=== PATIENT | male | born 1930 | race Caucasian/White ===

== ENCOUNTER 2018-01-08 00:36 | Inpatient (IN) | payer OTHER ==
[2018-01-08] MEDS ORDERED: ACETAMINOPHEN 325 MG TAB PO (03:30)
[2018-01-08] MEDS ORDERED: ONDANSETRON 4 MG INJ IV (03:30)
[2018-01-08] MEDS ORDERED: morphine 2 MG INJ IV (03:30)
[2018-01-08] MEDS ORDERED: NACL 0.9% 3 ML SYG IV (03:30)
[2018-01-08 03:47] LABS: ADD MAN DIFF? NO
[2018-01-08 03:50] LABS: BASOPHILS % 0.3 % (0.0-2.0); EOSINOPHILS # 0.3 10^3/ul (0.0-0.5); EOSINOPHILS % 3.8 % (0.0-7.0); HEMOGLOBIN 12.4 g/dl (14.0-18.0); LYMPHOCYTES # 1.3 10^3/ul (0.8-2.9); LYMPHOCYTES % 17.4 % (15.0-51.0); MEAN CORPUSCULAR HEMOGLOBIN 30.3 pg (29.0-33.0); MEAN CORPUSCULAR HGB CONC 33.5 g/dl (32.0-37.0); MEAN CORPUSCULAR VOLUME 90.5 fl (82.0-101.0); MEAN PLATELET VOLUME 10.5 fl (7.4-10.4); MONOCYTE # 0.6 10^3/ul (0.3-0.9); MONOCYTES % 8.7 % (0.0-11.0); NEUTROPHIL # 5.1 10^3/ul (1.6-7.5); NEUTROPHILS % 69.3 % (39.0-77.0); PLATELET COUNT 211 10^3/UL (140-415); RED BLOOD COUNT 4.09 10^6/ul (4.70-6.10); RED CELL DISTRIBUTION WIDTH 14.6 % (11.5-14.5)
[2018-01-08 03:50] LABS: WHITE BLOOD COUNT 7.4 10^3/ul (4.8-10.8)
[2018-01-08 04:08] LABS: HEMOGLOBIN A1C 5.8 % (0-5.9)
[2018-01-08 04:11] LABS: ALANINE AMINOTRANSFERASE 13 IU/L (13-69); ALBUMIN 4.3 g/dl (3.3-4.9); ALBUMIN/GLOBULIN RATIO 1.34; ALKALINE PHOSPHATASE 82 IU/L (42-121); ANION GAP 22 (8-16); ASPARTATE AMINO TRANSFERASE 11 IU/L (15-46); BILIRUBIN,INDIRECT 0.2 mg/dl (0-1.1); BILIRUBIN,TOTAL 0.2 mg/dl (0.2-1.3); BLOOD UREA NITROGEN 75 mg/dl (7-20); CARBON DIOXIDE 16 mmol/L (21-31); CHLORIDE 109 mmol/L (97-110); CHOL/HDL RATIO 7.4 RATIO; CHOLESTEROL 200 mg/dl (100-200); CREATININE 3.61 mg/dl (0.61-1.24); GLUCOSE 109 mg/dl (70-220); HDL CHOLESTEROL 27 mg/dl (31-75); LDL CHOLESTEROL,CALCULATED 89 mg/dl; MAGNESIUM 1.7 mg/dl (1.7-2.5); POTASSIUM 4.8 mmol/L (3.5-5.1); SODIUM 142 mmol/L (135-144); TOTAL PROTEIN 7.5 g/dl (6.1-8.1); TRIGLYCERIDES 422 mg/dl (0-149)
[2018-01-08 04:18] LABS: B-TYPE NATRIURETIC PEPTIDE 4930 PG/ML (0-450)
[2018-01-08 05:17] LABS: THYROID STIMULATING HORMONE 0.466 MIU/L (0.465-4.680)
[2018-01-08 05:57] LABS: ADD UMIC NO; UR ASCORBIC ACID NEGATIVE (NEGATIVE); UR BILIRUBIN (Dip) NEGATIVE (NEGATIVE); UR BLOOD (Dip) NEGATIVE (NEGATIVE); UR CLARITY CLEAR (CLEAR); UR COLOR YELLOW (YELLOW); UR GLUCOSE (Dip) NEGATIVE (NEGATIVE); UR KETONES (Dip) NEGATIVE (NEGATIVE); UR LEUKOCYTE ESTERASE (Dip) NEGATIVE Leu/ul (NEGATIVE); UR NITRITE (Dip) NEGATIVE (NEGATIVE); UR RBC 0 /HPF (0-5); UR SPECIFIC GRAVITY (Dip) 1.015 (1.003-1.030); UR TOTAL PROTEIN (Dip) NEGATIVE (NEGATIVE); UR UROBILINOGEN (Dip) NEGATIVE (NEGATIVE); UR WBC 2 /HPF (0-5)
[2018-01-08 09:34] LABS: CREATINE KINASE 98 IU/L (23-200); TROPONIN-I 0.048 ng/ml (0.000-0.120)
[2018-01-08 09:35] LABS: CK-MB 1.93 ng/ml (0.0-2.4)
[2018-01-08] MEDS: NITROGLYCERIN (SL) 0.4 MG TAB SL ×2 (12:32→12:38)
[2018-01-08] MEDS: ASPIRIN (EC) 81 MG TAB PO (12:33)
[2018-01-08] MEDS: ISOSORBIDE MONONITRATE(SR)60 MG TAB PO (12:33)
[2018-01-08] MEDS: NA BICARBONATE 650 MG TAB PO ×2 (12:34→21:15)
[2018-01-08] MEDS: CLOPIDOGREL 75 MG TAB PO (14:53)
[2018-01-08] MEDS: ATORVASTATIN 40 MG TAB PO (21:15)
[2018-01-09 06:28] LABS: ADD MAN DIFF? NO
[2018-01-09 06:39] LABS: WHITE BLOOD COUNT 6.6 10^3/ul (4.8-10.8)
[2018-01-09 06:39] LABS: BASOPHILS % 0.3 % (0.0-2.0); EOSINOPHILS # 0.2 10^3/ul (0.0-0.5); EOSINOPHILS % 3.6 % (0.0-7.0); HEMATOCRIT 38.6 % (42.0-52.0); HEMOGLOBIN 12.6 g/dl (14.0-18.0); LYMPHOCYTES # 0.9 10^3/ul (0.8-2.9); LYMPHOCYTES % 12.9 % (15.0-51.0); MEAN CORPUSCULAR HEMOGLOBIN 30.1 pg (29.0-33.0); MEAN CORPUSCULAR HGB CONC 32.6 g/dl (32.0-37.0); MEAN CORPUSCULAR VOLUME 92.1 fl (82.0-101.0); MEAN PLATELET VOLUME 10.9 fl (7.4-10.4); MONOCYTE # 0.5 10^3/ul (0.3-0.9); MONOCYTES % 8.2 % (0.0-11.0); NEUTROPHIL # 4.9 10^3/ul (1.6-7.5); NEUTROPHILS % 74.5 % (39.0-77.0); PLATELET COUNT 231 10^3/UL (140-415); RED BLOOD COUNT 4.19 10^6/ul (4.70-6.10); RED CELL DISTRIBUTION WIDTH 14.3 % (11.5-14.5)
[2018-01-09 06:51] LABS: ANION GAP 21 (8-16); BLOOD UREA NITROGEN 75 mg/dl (7-20); CALCIUM 8.9 mg/dl (8.4-10.2); CARBON DIOXIDE 16 mmol/L (21-31); CHLORIDE 110 mmol/L (97-110); CREATININE 2.94 mg/dl (0.61-1.24); GLUCOSE 130 mg/dl (70-220); POTASSIUM 4.6 mmol/L (3.5-5.1); SODIUM 142 mmol/L (135-144)
[2018-01-09 07:02] LABS: MAGNESIUM 1.9 mg/dl (1.7-2.5)
[2018-01-09] MEDS: NA BICARBONATE 650 MG TAB PO ×2 (08:44→20:32)
[2018-01-09] MEDS: ASPIRIN (EC) 81 MG TAB PO (08:44)
[2018-01-09] MEDS: ISOSORBIDE MONONITRATE(SR)60 MG TAB PO (08:45)
[2018-01-09] MEDS: CLOPIDOGREL 75 MG TAB PO (08:45)
[2018-01-09] MEDS ORDERED: morphine LIQ (10 MG/5 ML) CUP PO (14:30)
[2018-01-09] MEDS: FUROSEMIDE 20 MG TAB PO (15:20)
[2018-01-09] MEDS: ATORVASTATIN 40 MG TAB PO (20:32)
[2018-01-09] MEDS: RANOLAZINE (SR) 500 MG TAB PO (20:32)
[2018-01-10] MEDS: FUROSEMIDE 20 MG TAB PO (06:02)
[2018-01-10] MEDS: ASPIRIN (EC) 81 MG TAB PO (08:22)
[2018-01-10] MEDS: ISOSORBIDE MONONITRATE(SR)30 MG TAB PO (08:22)
[2018-01-10] MEDS: CLOPIDOGREL 75 MG TAB PO (08:22)
[2018-01-10] MEDS: RANOLAZINE (SR) 500 MG TAB PO (08:23)
[2018-01-10] MEDS: NA BICARBONATE 650 MG TAB PO (08:23)
== END 2018-01-10 14:25 | disposition home or self-care (01) | DRG 682 ==
LOC: TEL 00:36
DX: N17.9 Acute kidney failure, unspecified (principal); I50.23 Acute on chronic systolic (congestive) heart failure; I13.0 Hypertensive heart and chronic kidney disease with heart failure and stage 1 through stage 4 chronic kidney disease, or unspecified chronic kidney disease; I42.9 Cardiomyopathy, unspecified; Z95.1 Presence of aortocoronary bypass graft; R07.9 Chest pain, unspecified; N18.4 Chronic kidney disease, stage 4 (severe); I25.10 Atherosclerotic heart disease of native coronary artery without angina pectoris; E78.5 Hyperlipidemia, unspecified; Z79.82 Long term (current) use of aspirin; Z79.02 Long term (current) use of antithrombotics/antiplatelets; Z95.5 Presence of coronary angioplasty implant and graft; Z87.891 Personal history of nicotine dependence
CPT/HCPCS: 71045; 76775; 80048; 80053; 80061; 81003; 82550; 82553; 83036; 83735; 83880; 84443; 84484; 85025; 87081; 93005; 93306

== ENCOUNTER 2018-01-16 10:49 | Inpatient (IN) | payer OTHER ==
[2018-01-16 11:42] LABS: ADD MAN DIFF? NO
[2018-01-16 11:52] LABS: WHITE BLOOD COUNT 7.4 10^3/ul (4.8-10.8)
[2018-01-16 11:52] LABS: ABNORMAL IP MESSAGE 1; BASOPHILS % 0.1 % (0.0-2.0); EOSINOPHILS # 0.2 10^3/ul (0.0-0.5); EOSINOPHILS % 3.2 % (0.0-7.0); HEMATOCRIT 36.5 % (42.0-52.0); HEMOGLOBIN 11.8 g/dl (14.0-18.0); LYMPHOCYTES # 0.6 10^3/ul (0.8-2.9); LYMPHOCYTES % 7.7 % (15.0-51.0); MEAN CORPUSCULAR HEMOGLOBIN 30.1 pg (29.0-33.0); MEAN CORPUSCULAR HGB CONC 32.3 g/dl (32.0-37.0); MEAN CORPUSCULAR VOLUME 93.1 fl (82.0-101.0); MEAN PLATELET VOLUME 10.4 fl (7.4-10.4); MONOCYTE # 0.4 10^3/ul (0.3-0.9); MONOCYTES % 5.3 % (0.0-11.0); NEUTROPHIL # 6.1 10^3/ul (1.6-7.5); NEUTROPHILS % 83.2 % (39.0-77.0); PLATELET COUNT 202 10^3/UL (140-415); POSITIVE DIFF @See below; RED BLOOD COUNT 3.92 10^6/ul (4.70-6.10); RED CELL DISTRIBUTION WIDTH 14.6 % (11.5-14.5)
[2018-01-16] MEDS: ASPIRIN 81 MG TAB PO (11:56)
[2018-01-16 12:16] LABS: ANION GAP 17 (8-16); BLOOD UREA NITROGEN 47 mg/dl (7-20); CALCIUM 9.3 mg/dl (8.4-10.2); CARBON DIOXIDE 19 mmol/L (21-31); CHLORIDE 114 mmol/L (97-110); CREATININE 2.58 mg/dl (0.61-1.24); GLUCOSE 155 mg/dl (70-220); POTASSIUM 4.7 mmol/L (3.5-5.1); SODIUM 145 mmol/L (135-144)
[2018-01-16 12:26] LABS: B-TYPE NATRIURETIC PEPTIDE 6010 PG/ML (0-450); TROPONIN-I 0.033 ng/ml (0.000-0.120)
[2018-01-16] MEDS: morphine 4 MG/ML VIAL IV (13:16)
[2018-01-16] MEDS ORDERED: ACETAMINOPHEN 325 MG TAB PO ×2 (13:30→14:30)
[2018-01-16] MEDS ORDERED: ONDANSETRON 4 MG INJ IV ×2 (13:30→14:30)
[2018-01-16] MEDS ORDERED: NACL 0.9% 3 ML SYG IV (14:30)
[2018-01-16] MEDS ORDERED: NITROGLYCERIN (SL) 0.4 MG TAB SL (14:30)
[2018-01-16] MEDS: CITRIC ACID/SODIUM CITRATE 15 ML CUP PO ×2 (16:32→20:31)
[2018-01-16 18:15] LABS: CREATINE KINASE 98 IU/L (23-200)
[2018-01-16 18:28] LABS: CK INDEX 2.1; TROPONIN-I 0.034 ng/ml (0.000-0.120)
[2018-01-16 18:30] LABS: CK-MB 2.05 ng/ml (0.0-2.4)
[2018-01-16] MEDS: ATORVASTATIN 40 MG TAB PO (20:31)
[2018-01-16] MEDS: ISOSORBIDE MONONITRATE(SR)60 MG TAB PO (20:31)
[2018-01-16] MEDS ORDERED: NA BICARBONATE 650 MG TAB PO (21:00)
[2018-01-16] MEDS ORDERED: ISOSORBIDE MONONITRATE(SR)30 MG TAB PO (21:00)
[2018-01-16] MEDS: RANOLAZINE (SR) 500 MG TAB PO (22:14)
[2018-01-16] MEDS: HEPARIN 5,000 UNIT/0.5 ML VIAL SC (22:23)
[2018-01-17 00:10] LABS: CREATINE KINASE 79 IU/L (23-200)
[2018-01-17 00:24] LABS: CK INDEX 2.2; TROPONIN-I 0.037 ng/ml (0.000-0.120)
[2018-01-17 00:25] LABS: CK-MB 1.71 ng/ml (0.0-2.4)
[2018-01-17] MEDS: PANTOPRAZOLE (EC) 40 MG TAB PO (05:24)
[2018-01-17] MEDS: HEPARIN 5,000 UNIT/0.5 ML VIAL SC ×3 (05:25→21:03)
[2018-01-17] MEDS: morphine LIQ (10 MG/5 ML) CUP PO (05:37)
[2018-01-17] MEDS: CLOPIDOGREL 75 MG TAB PO (08:29)
[2018-01-17] MEDS: ASPIRIN (EC) 81 MG TAB PO (08:29)
[2018-01-17] MEDS: CITRIC ACID/SODIUM CITRATE 15 ML CUP PO ×3 (08:29→20:56)
[2018-01-17] MEDS: FUROSEMIDE 40 MG TAB PO (08:29)
[2018-01-17] MEDS: RANOLAZINE (SR) 500 MG TAB PO ×2 (08:30→20:57)
[2018-01-17] MEDS: ISOSORBIDE MONONITRATE(SR)60 MG TAB PO ×2 (08:30→20:57)
[2018-01-17 08:43] LABS: ADD MAN DIFF? NO
[2018-01-17 08:49] LABS: BASOPHILS % 0.2 % (0.0-2.0); EOSINOPHILS # 0.2 10^3/ul (0.0-0.5); EOSINOPHILS % 4.2 % (0.0-7.0); HEMATOCRIT 33.5 % (42.0-52.0); HEMOGLOBIN 10.8 g/dl (14.0-18.0); LYMPHOCYTES # 0.8 10^3/ul (0.8-2.9); LYMPHOCYTES % 14.2 % (15.0-51.0); MEAN CORPUSCULAR HEMOGLOBIN 30.2 pg (29.0-33.0); MEAN CORPUSCULAR HGB CONC 32.2 g/dl (32.0-37.0); MEAN CORPUSCULAR VOLUME 93.6 fl (82.0-101.0); MEAN PLATELET VOLUME 10.8 fl (7.4-10.4); MONOCYTE # 0.4 10^3/ul (0.3-0.9); MONOCYTES % 6.3 % (0.0-11.0); NEUTROPHIL # 4.3 10^3/ul (1.6-7.5); NEUTROPHILS % 74.7 % (39.0-77.0); PLATELET COUNT 185 10^3/UL (140-415); RED BLOOD COUNT 3.58 10^6/ul (4.70-6.10); RED CELL DISTRIBUTION WIDTH 14.6 % (11.5-14.5)
[2018-01-17 08:49] LABS: WHITE BLOOD COUNT 5.7 10^3/ul (4.8-10.8)
[2018-01-17 09:08] LABS: ALANINE AMINOTRANSFERASE 19 IU/L (13-69); ALBUMIN 3.5 g/dl (3.3-4.9); ALBUMIN/GLOBULIN RATIO 1.29; ALKALINE PHOSPHATASE 68 IU/L (42-121); ANION GAP 16 (8-16); ASPARTATE AMINO TRANSFERASE 12 IU/L (15-46); BILIRUBIN,INDIRECT 0.3 mg/dl (0-1.1); BILIRUBIN,TOTAL 0.3 mg/dl (0.2-1.3); BLOOD UREA NITROGEN 44 mg/dl (7-20); CALCIUM 8.8 mg/dl (8.4-10.2); CARBON DIOXIDE 19 mmol/L (21-31); CHLORIDE 116 mmol/L (97-110); CREATININE 2.45 mg/dl (0.61-1.24); GLUCOSE 102 mg/dl (70-220); MAGNESIUM 1.9 mg/dl (1.7-2.5); POTASSIUM 4.6 mmol/L (3.5-5.1); SODIUM 146 mmol/L (135-144); TOTAL PROTEIN 6.2 g/dl (6.1-8.1)
[2018-01-17] MEDS: GABAPENTIN 100 MG CAP PO (13:12)
[2018-01-17] MEDS: ATORVASTATIN 40 MG TAB PO (20:57)
[2018-01-18] MEDS: PANTOPRAZOLE (EC) 40 MG TAB PO (06:12)
[2018-01-18] MEDS: HEPARIN 5,000 UNIT/0.5 ML VIAL SC ×3 (06:13→20:22)
[2018-01-18 06:58] LABS: ADD MAN DIFF? NO
[2018-01-18 07:32] LABS: BASOPHILS % 0.3 % (0.0-2.0); EOSINOPHILS # 0.4 10^3/ul (0.0-0.5); HEMATOCRIT 35.4 % (42.0-52.0); HEMOGLOBIN 11.4 g/dl (14.0-18.0); LYMPHOCYTES # 0.9 10^3/ul (0.8-2.9); LYMPHOCYTES % 12.7 % (15.0-51.0); MEAN CORPUSCULAR HEMOGLOBIN 30.2 pg (29.0-33.0); MEAN CORPUSCULAR HGB CONC 32.2 g/dl (32.0-37.0); MEAN CORPUSCULAR VOLUME 93.9 fl (82.0-101.0); MEAN PLATELET VOLUME 10.6 fl (7.4-10.4); MONOCYTE # 0.5 10^3/ul (0.3-0.9); MONOCYTES % 6.7 % (0.0-11.0); NEUTROPHIL # 5.3 10^3/ul (1.6-7.5); PLATELET COUNT 193 10^3/UL (140-415); RED BLOOD COUNT 3.77 10^6/ul (4.70-6.10); RED CELL DISTRIBUTION WIDTH 14.6 % (11.5-14.5)
[2018-01-18] MEDS: HYDROCODONE/APAP (5/325) TAB PO (07:44)
[2018-01-18] MEDS: CLOPIDOGREL 75 MG TAB PO (08:22)
[2018-01-18] MEDS: GABAPENTIN 100 MG CAP PO (08:22)
[2018-01-18] MEDS: RANOLAZINE (SR) 500 MG TAB PO ×2 (08:22→20:21)
[2018-01-18] MEDS: ASPIRIN (EC) 81 MG TAB PO (08:22)
[2018-01-18] MEDS: ISOSORBIDE MONONITRATE(SR)60 MG TAB PO ×2 (08:23→20:21)
[2018-01-18] MEDS: FUROSEMIDE 40 MG TAB PO (08:23)
[2018-01-18] MEDS: CITRIC ACID/SODIUM CITRATE 15 ML CUP PO ×3 (08:23→20:20)
[2018-01-18 08:24] LABS: PHOSPHORUS 4.4 mg/dl (2.5-4.9)
[2018-01-18 08:24] LABS: MAGNESIUM 1.8 mg/dl (1.7-2.5)
[2018-01-18 09:22] LABS: ANION GAP 17 (8-16); BLOOD UREA NITROGEN 51 mg/dl (7-20); CARBON DIOXIDE 25 mmol/L (21-31); CHLORIDE 109 mmol/L (97-110); CREATININE 2.75 mg/dl (0.61-1.24); GLUCOSE 99 mg/dl (70-220); POTASSIUM 4.9 mmol/L (3.5-5.1); SODIUM 146 mmol/L (135-144)
[2018-01-18] MEDS: ATORVASTATIN 40 MG TAB PO (20:21)
[2018-01-19] MEDS: HEPARIN 5,000 UNIT/0.5 ML VIAL SC ×3 (06:00→21:12)
[2018-01-19] MEDS: PANTOPRAZOLE (EC) 40 MG TAB PO (06:18)
[2018-01-19 07:44] LABS: ADD MAN DIFF? NO
[2018-01-19 07:54] LABS: BASOPHILS % 0.3 % (0.0-2.0); EOSINOPHILS # 0.3 10^3/ul (0.0-0.5); EOSINOPHILS % 3.4 % (0.0-7.0); HEMATOCRIT 34.3 % (42.0-52.0); HEMOGLOBIN 11.1 g/dl (14.0-18.0); LYMPHOCYTES # 0.8 10^3/ul (0.8-2.9); LYMPHOCYTES % 11.3 % (15.0-51.0); MEAN CORPUSCULAR HEMOGLOBIN 29.9 pg (29.0-33.0); MEAN CORPUSCULAR HGB CONC 32.4 g/dl (32.0-37.0); MEAN CORPUSCULAR VOLUME 92.5 fl (82.0-101.0); MEAN PLATELET VOLUME 10.7 fl (7.4-10.4); MONOCYTE # 0.6 10^3/ul (0.3-0.9); MONOCYTES % 8.7 % (0.0-11.0); NEUTROPHIL # 5.5 10^3/ul (1.6-7.5); NEUTROPHILS % 75.8 % (39.0-77.0); PLATELET COUNT 179 10^3/UL (140-415); RED BLOOD COUNT 3.71 10^6/ul (4.70-6.10); RED CELL DISTRIBUTION WIDTH 14.6 % (11.5-14.5)
[2018-01-19 07:54] LABS: WHITE BLOOD COUNT 7.3 10^3/ul (4.8-10.8)
[2018-01-19 08:28] LABS: ANION GAP 16 (8-16); BLOOD UREA NITROGEN 56 mg/dl (7-20); CALCIUM 8.8 mg/dl (8.4-10.2); CARBON DIOXIDE 28 mmol/L (21-31); CHLORIDE 106 mmol/L (97-110); CREATININE 2.95 mg/dl (0.61-1.24); GLUCOSE 118 mg/dl (70-220); MAGNESIUM 1.8 mg/dl (1.7-2.5); PHOSPHORUS 4.2 mg/dl (2.5-4.9); POTASSIUM 4.9 mmol/L (3.5-5.1); SODIUM 145 mmol/L (135-144)
[2018-01-19] MEDS: ASPIRIN (EC) 81 MG TAB PO (08:33)
[2018-01-19] MEDS: RANOLAZINE (SR) 500 MG TAB PO ×2 (08:33→21:12)
[2018-01-19] MEDS: ISOSORBIDE MONONITRATE(SR)60 MG TAB PO ×2 (08:34→21:00)
[2018-01-19] MEDS: FUROSEMIDE 40 MG TAB PO (08:34)
[2018-01-19] MEDS: GABAPENTIN 100 MG CAP PO (08:35)
[2018-01-19] MEDS: CLOPIDOGREL 75 MG TAB PO (08:35)
[2018-01-19] MEDS: CITRIC ACID/SODIUM CITRATE 15 ML CUP PO ×3 (08:36→21:11)
[2018-01-19] MEDS: ATORVASTATIN 40 MG TAB PO (21:11)
[2018-01-19] MEDS: HYDROCODONE/APAP (5/325) TAB PO (21:11)
[2018-01-19] MEDS: ZOLPIDEM 5 MG TAB PO (23:05)
[2018-01-20] MEDS: PANTOPRAZOLE (EC) 40 MG TAB PO (05:32)
[2018-01-20] MEDS: HEPARIN 5,000 UNIT/0.5 ML VIAL SC ×2 (05:34→13:29)
[2018-01-20 07:50] LABS: ADD MAN DIFF? NO
[2018-01-20 07:56] LABS: BASOPHILS % 0.2 % (0.0-2.0); EOSINOPHILS # 0.3 10^3/ul (0.0-0.5); EOSINOPHILS % 4.7 % (0.0-7.0); HEMATOCRIT 34.7 % (42.0-52.0); HEMOGLOBIN 11.2 g/dl (14.0-18.0); LYMPHOCYTES # 0.8 10^3/ul (0.8-2.9); LYMPHOCYTES % 13.2 % (15.0-51.0); MEAN CORPUSCULAR HGB CONC 32.3 g/dl (32.0-37.0); MEAN PLATELET VOLUME 11.5 fl (7.4-10.4); MONOCYTE # 0.5 10^3/ul (0.3-0.9); MONOCYTES % 7.8 % (0.0-11.0); NEUTROPHIL # 4.4 10^3/ul (1.6-7.5); NEUTROPHILS % 73.8 % (39.0-77.0); PLATELET COUNT 192 10^3/UL (140-415); RED BLOOD COUNT 3.73 10^6/ul (4.70-6.10); RED CELL DISTRIBUTION WIDTH 14.6 % (11.5-14.5)
[2018-01-20 08:17] LABS: ANION GAP 15 (8-16); BLOOD UREA NITROGEN 59 mg/dl (7-20); CALCIUM 8.6 mg/dl (8.4-10.2); CARBON DIOXIDE 30 mmol/L (21-31); CHLORIDE 105 mmol/L (97-110); CREATININE 3.06 mg/dl (0.61-1.24); GLUCOSE 118 mg/dl (70-220); POTASSIUM 4.6 mmol/L (3.5-5.1); SODIUM 145 mmol/L (135-144)
[2018-01-20] MEDS: GABAPENTIN 100 MG CAP PO (09:37)
[2018-01-20] MEDS: CITRIC ACID/SODIUM CITRATE 15 ML CUP PO ×3 (09:37→20:39)
[2018-01-20] MEDS: CLOPIDOGREL 75 MG TAB PO (09:37)
[2018-01-20] MEDS: FUROSEMIDE 40 MG TAB PO (09:37)
[2018-01-20] MEDS: RANOLAZINE (SR) 500 MG TAB PO ×2 (09:38→20:39)
[2018-01-20] MEDS: ASPIRIN (EC) 81 MG TAB PO (09:38)
[2018-01-20] MEDS: SOD CHLORIDE 0.9% 1,000 ML IV (09:39)
[2018-01-20] MEDS: ISOSORBIDE MONONITRATE(SR)60 MG TAB PO ×2 (10:30→20:40)
[2018-01-20] MEDS: ATORVASTATIN 40 MG TAB PO (20:40)
[2018-01-20] MEDS: HYDROCODONE/APAP (5/325) TAB PO (20:40)
[2018-01-21] MEDS: ZOLPIDEM 5 MG TAB PO (00:52)
[2018-01-21] MEDS: PANTOPRAZOLE (EC) 40 MG TAB PO (05:49)
[2018-01-21] MEDS: CLOPIDOGREL 75 MG TAB PO (09:16)
[2018-01-21] MEDS: ISOSORBIDE MONONITRATE(SR)60 MG TAB PO ×2 (09:16→20:59)
[2018-01-21] MEDS: ASPIRIN (EC) 81 MG TAB PO (09:16)
[2018-01-21] MEDS: RANOLAZINE (SR) 500 MG TAB PO ×2 (09:16→21:00)
[2018-01-21] MEDS: CITRIC ACID/SODIUM CITRATE 15 ML CUP PO ×3 (09:16→20:58)
[2018-01-21] MEDS: GABAPENTIN 100 MG CAP PO (09:16)
[2018-01-21 12:34] LABS: ANION GAP 18 (8-16); BLOOD UREA NITROGEN 59 mg/dl (7-20); CALCIUM 8.7 mg/dl (8.4-10.2); CARBON DIOXIDE 29 mmol/L (21-31); CHLORIDE 101 mmol/L (97-110); CREATININE 3.02 mg/dl (0.61-1.24); GLUCOSE 160 mg/dl (70-220); POTASSIUM 4.7 mmol/L (3.5-5.1); SODIUM 143 mmol/L (135-144)
[2018-01-21] MEDS: HYDROCODONE/APAP (5/325) TAB PO (16:03)
[2018-01-21] MEDS: ATORVASTATIN 40 MG TAB PO (21:00)
[2018-01-21] MEDS: BISACODYL (EC) 5 MG TAB PO (21:00)
[2018-01-21] MEDS: LORAZEPAM 0.5 MG TAB PO (21:01)
[2018-01-22] MEDS: PANTOPRAZOLE (EC) 40 MG TAB PO (05:45)
[2018-01-22 07:35] LABS: ADD MAN DIFF? NO
[2018-01-22 07:41] LABS: BASOPHILS % 0.2 % (0.0-2.0); EOSINOPHILS # 0.4 10^3/ul (0.0-0.5); EOSINOPHILS % 5.8 % (0.0-7.0); HEMATOCRIT 35.5 % (42.0-52.0); HEMOGLOBIN 11.4 g/dl (14.0-18.0); LYMPHOCYTES # 0.8 10^3/ul (0.8-2.9); LYMPHOCYTES % 12.2 % (15.0-51.0); MEAN CORPUSCULAR HEMOGLOBIN 29.9 pg (29.0-33.0); MEAN CORPUSCULAR HGB CONC 32.1 g/dl (32.0-37.0); MEAN CORPUSCULAR VOLUME 93.2 fl (82.0-101.0); MEAN PLATELET VOLUME 10.7 fl (7.4-10.4); MONOCYTE # 0.5 10^3/ul (0.3-0.9); MONOCYTES % 7.3 % (0.0-11.0); NEUTROPHIL # 4.6 10^3/ul (1.6-7.5); NEUTROPHILS % 73.9 % (39.0-77.0); PLATELET COUNT 200 10^3/UL (140-415); RED BLOOD COUNT 3.81 10^6/ul (4.70-6.10); RED CELL DISTRIBUTION WIDTH 14.7 % (11.5-14.5)
[2018-01-22 07:41] LABS: WHITE BLOOD COUNT 6.2 10^3/ul (4.8-10.8)
[2018-01-22 08:04] LABS: ALBUMIN 4.1 g/dl (3.3-4.9); ANION GAP 19 (8-16); BLOOD UREA NITROGEN 57 mg/dl (7-20); CALCIUM 9.1 mg/dl (8.4-10.2); CARBON DIOXIDE 28 mmol/L (21-31); CHLORIDE 101 mmol/L (97-110); CREATININE 3.11 mg/dl (0.61-1.24); GLUCOSE 128 mg/dl (70-220); MAGNESIUM 1.7 mg/dl (1.7-2.5); PHOSPHORUS 4.5 mg/dl (2.5-4.9); POTASSIUM 4.6 mmol/L (3.5-5.1); SODIUM 143 mmol/L (135-144)
[2018-01-22] MEDS: ASPIRIN (EC) 81 MG TAB PO (09:18)
[2018-01-22] MEDS: GABAPENTIN 100 MG CAP PO (09:18)
[2018-01-22] MEDS: RANOLAZINE (SR) 500 MG TAB PO ×2 (09:18→20:34)
[2018-01-22] MEDS: CLOPIDOGREL 75 MG TAB PO (09:18)
[2018-01-22] MEDS: ISOSORBIDE MONONITRATE(SR)60 MG TAB PO ×2 (09:19→20:35)
[2018-01-22] MEDS: CITRIC ACID/SODIUM CITRATE 15 ML CUP PO ×3 (09:19→20:34)
[2018-01-22] MEDS: HYDROCODONE/APAP (5/325) TAB PO ×2 (13:59→20:35)
[2018-01-22] MEDS: DOCUSATE SODIUM 100 MG CAP PO (14:03)
[2018-01-22] MEDS: BISACODYL (EC) 5 MG TAB PO (14:03)
[2018-01-22] MEDS: MAGNESIUM HYDROXIDE 30ML CUP PO (14:03)
[2018-01-22] MEDS: FUROSEMIDE 40 MG TAB PO (17:24)
[2018-01-22] MEDS: ATORVASTATIN 40 MG TAB PO (20:34)
[2018-01-22] MEDS: LORAZEPAM 0.5 MG TAB PO (23:51)
[2018-01-23] MEDS: PANTOPRAZOLE (EC) 40 MG TAB PO (05:31)
[2018-01-23 06:39] LABS: ADD MAN DIFF? NO
[2018-01-23 06:50] LABS: WHITE BLOOD COUNT 5.6 10^3/ul (4.8-10.8)
[2018-01-23 06:50] LABS: BASOPHILS % 0.2 % (0.0-2.0); EOSINOPHILS # 0.3 10^3/ul (0.0-0.5); EOSINOPHILS % 5.2 % (0.0-7.0); HEMATOCRIT 32.7 % (42.0-52.0); HEMOGLOBIN 10.5 g/dl (14.0-18.0); LYMPHOCYTES # 0.8 10^3/ul (0.8-2.9); LYMPHOCYTES % 14.2 % (15.0-51.0); MEAN CORPUSCULAR HEMOGLOBIN 30.3 pg (29.0-33.0); MEAN CORPUSCULAR HGB CONC 32.1 g/dl (32.0-37.0); MEAN CORPUSCULAR VOLUME 94.5 fl (82.0-101.0); MEAN PLATELET VOLUME 11.1 fl (7.4-10.4); MONOCYTE # 0.5 10^3/ul (0.3-0.9); MONOCYTES % 8.5 % (0.0-11.0); NEUTROPHILS % 71.5 % (39.0-77.0); PLATELET COUNT 180 10^3/UL (140-415); RED BLOOD COUNT 3.46 10^6/ul (4.70-6.10); RED CELL DISTRIBUTION WIDTH 14.6 % (11.5-14.5)
[2018-01-23 07:20] LABS: ALBUMIN 3.6 g/dl (3.3-4.9); ANION GAP 15 (8-16); BLOOD UREA NITROGEN 57 mg/dl (7-20); CARBON DIOXIDE 34 mmol/L (21-31); CHLORIDE 101 mmol/L (97-110); CREATININE 3.03 mg/dl (0.61-1.24); GLUCOSE 113 mg/dl (70-220); MAGNESIUM 2.1 mg/dl (1.7-2.5); PHOSPHORUS 3.9 mg/dl (2.5-4.9); SODIUM 145 mmol/L (135-144)
[2018-01-23] MEDS: CITRIC ACID/SODIUM CITRATE 15 ML CUP PO ×2 (08:34→12:44)
[2018-01-23] MEDS: ISOSORBIDE MONONITRATE(SR)60 MG TAB PO (08:34)
[2018-01-23] MEDS: ASPIRIN (EC) 81 MG TAB PO (08:35)
[2018-01-23] MEDS: CLOPIDOGREL 75 MG TAB PO (08:35)
[2018-01-23] MEDS: RANOLAZINE (SR) 500 MG TAB PO (08:35)
[2018-01-23] MEDS: GABAPENTIN 100 MG CAP PO (08:35)
[2018-01-23] MEDS: HYDROCODONE/APAP (5/325) TAB PO (12:50)
== END 2018-01-23 17:55 | disposition home health service (06) | DRG 291 ==
LOC: E/R 10:49 → MS4 13:15
DX: I13.0 Hypertensive heart and chronic kidney disease with heart failure and stage 1 through stage 4 chronic kidney disease, or unspecified chronic kidney disease (principal); I50.23 Acute on chronic systolic (congestive) heart failure; N17.9 Acute kidney failure, unspecified; N18.4 Chronic kidney disease, stage 4 (severe); E87.0 Hyperosmolality and hypernatremia; E87.2 Acidosis; I25.10 Atherosclerotic heart disease of native coronary artery without angina pectoris; R07.9 Chest pain, unspecified; D63.1 Anemia in chronic kidney disease; E78.5 Hyperlipidemia, unspecified; G62.9 Polyneuropathy, unspecified; I25.5 Ischemic cardiomyopathy; Z95.1 Presence of aortocoronary bypass graft; Z95.5 Presence of coronary angioplasty implant and graft
CPT/HCPCS: 36415; 71045; 73630; 80048; 80053; 80069; 82550; 82553; 82962; 83735; 83880; 84100; 84484; 85025; 93005; 93970; 96374; 97161; 99285-25